=== PATIENT | female | born 1975 | race African-American/Black ===

== ENCOUNTER 2022-06-20 10:06 | Emergency (ER) | payer OTHER, SELFPAY ==
[2022-06-20 10:27] VITALS: BP 140/76; PULSE 89; RESP 16; TEMP 36.5; O2SAT 100
[2022-06-20 11:53] LABS: Basophils Percent Auto 0.8 % (0.2-1.2); Eosinophils Absolute Auto 0.1 K/mm3 (0-0.3); Eosinophils Percent Auto 1.8 % (0-4.4); Hematocrit 42.2 % (37.0-47.0); Hemoglobin 13.6 g/dL (12.0-15.0); Immature Granulocyte Absolute 0.01 K/mm3 (0.00-0.031); Immature Granulocyte Percent A 0.3 % (0-0.5); Lymphocytes Absolute Auto 1.81 K/mm3 (0.9-3.2); Lymphocytes Percent Auto 46.1 % (18.3-44.2); Mean Corpuscular HGB Conc 32.2 g/dl (32-36); Mean Corpuscular Hemoglobin 29.7 pg (26-34); Mean Corpuscular Volume 92.1 fl (80-100); Mean Platelet Volume 9.6 fl (7.4-10.4); Monocytes Absolute Auto 0.5 K/mm3 (0.1-0.6); Monocytes Percent Auto 11.7 % (2.6-8.5); Neutrophils Absolute Auto 1.6 K/mm3 (1.3-6.7); Neutrophils Percent Auto 39.3 % (45.5-73.1); Platelet Count Result 345 k/mm3 (150-375); Red Blood Count 4.58 M/mm3 (4.2-5.4); Red Cell Distribution Width 13.4 % (11.5-14.5); White Blood Count 3.9 K/mm3 (4.5-10.0)
[2022-06-20 12:07] LABS: Alanine Aminotransferase 10 U/L (6-35); Albumin Level 4.4 g/dL (3.5-5.1); Alkaline Phosphatase 63 U/L (38-126); Anion Gap 8 mmol/L (8-16); Aspartate Amino Transferase 23 U/L (14-36); Bilirubin,Total 0.3 mg/dL (0.2-1.3); Blood Urea Nitrogen 8 mg/dL (7-17); Calcium 8.6 mg/dL (8.4-10.2); Carbon Dioxide 26 mmol/L (22-30); Chloride 107 mmol/L (98-107); Estimated CRCL calculation 131 ml/min; Estimated Glomerular Filt Rate > 60; Glucose 97 mg/dL (65-110); Lipase 136 U/L (23-300); Potassium 3.9 mmol/L (3.4-5.0); Sodium 141 mmol/L (137-145)
[2022-06-20] MEDS: SODIUM CHLORIDE 0.9% IV 1,000 ML 999 ML IV CONT ×2 (12:15→13:49)
[2022-06-20 12:29] LABS: Appearance Urine Clear (Clear); Bilirubin Urine 1+ (Negative); Blood Urine 3+ (Negative); Color Urine Dark Yellow (Yellow); Glucose Urine UA Negative (Negative); Ketones Urine 1+ mg/dL (Negative); Leukocyte Esterase Ur Negative LEU/UL (Negative); Nitrate Urine Negative (Negative); Protein Urine 1+ mg/dL (Negative); Specific Grav Ur 1.025 (1.001-1.035); Urobilinogen Urine 0.2 mg/dL (<2.0); pH Urine 5.5 (5.0-9.0)
[2022-06-20 12:29] LABS: Influenza A QL RT-PCR Positive (Negative); Influenza B QL RT-PCR Negative (Negative); SARS-CoV-2 RNA PCR Negative
[2022-06-20 12:33] LABS: Mucus Urine Rare /lpf; RBC Urine >75 /hpf (0-2); Squamous Epithelial Cell Urine Occasional /hpf (Few)
[2022-06-20 12:44] LABS: Add Urine Microscopic? YES
--- NOTE | 2022-06-20 13:29 | ED.NAVMDI ---
HPI - Nausea/Vomiting/Diarrhea General Chief complaint: Nausea/Vomiting/Diarrhea Stated complaint: diarrhea Time Seen by Provider: 06/20/22 11:49 Source: patient Mode of arrival: ambulatory Limitations: no limitations History of Present Illness HPI Narrative: Patient is a 47 y/o female who presents the ED with report of diarrhea. Patient reports she first developed cough and cold symptoms last week. She was around several family members at [facility] who had similar symptoms. On Saturday night, she developed diarrhea which has since persisted. She reports having numerous episodes yesterday and 2 today. She did try Pepto-Bismol and 1 dose of Imodium last night which is provided some relief. She denies any documented fever, nausea, vomiting, abdominal pain, rectal bleeding, urinary symptoms, chest pain, difficulty breathing. She is vaccinated for COVID, but not the flu. Related Data Allergies Allergy/AdvReac Type Severity Reaction Status Date / Time Penicillins Allergy Rash Verified 06/20/22 10:27 Review of Systems Review of Systems: CONSTITUTIONAL: Denies fever, chills, or sweats. ENT: Reports rhinorrhea, congestion, sore throat. CARDIOVASCULAR: Denies chest pain. RESPIRATORY: Reports cough. Denies dyspnea. GASTROINTESTINAL: Reports diarrhea. Denies rectal bleeding, abdominal pain, nausea, vomiting. GENITOURINARY: Denies dysuria or hematuria. All systems reviewed & are unremarkable except as noted in HPI and below PMFSH Past Medical History Medical History (Updated 06/20/22 @ 14:06 by Snehal Peraza PA-C) HLD (hyperlipidemia) HTN (hypertension) Iron deficiency anemia Vitamin D deficiency Surgical History Surgical History (Updated 06/20/22 @ 14:03 by Snehal Peraza PA-C) No pertinent past surgical history Social History Social History (Updated 06/20/22 @ 14:03 by Snehal Peraza PA-C) Smoking status: Never smoker Exam Narrative: GENERAL: Well appearing, morbidly obese, non-toxic, in no acute distress. HEAD: Normocephalic, atraumatic. EENT: PERRLA/EOMI, conjunctiva clear. Mild posterior pharynx erythema, no tonsillar hypertrophy or exudate. Uvula midline. NECK: Supple. No adenopathy, no masses. RESPIRATORY: Airway patent, respirations nonlabored. Clear to auscultation bilaterally, no rales, rhonchi, wheezing. CARDIOVASCULAR: Regular rate and rhythm without murmurs, rubs, or gallops. Peripheral pulses 2+ and equal bilaterally. ABDOMINAL: Soft, no tenderness to palpation throughout abdomen, nondistended, no hepatosplenomegaly. Normoactive BS. MUSCULOSKELETAL: Moves all extremities. Strength/ROM intact without gross deformities. SKIN: Warm, dry, normal color. No rashes. NEURO: A&O X3. Speech clear. Cranial nerves II-XII grossly intact. Steady gait. No ataxic movements. PSYCHIATRIC: Appropriate mood and affect. Normal interaction. Course Vital Signs Vital signs: Vital Signs Temperature 97.7 F 06/20/22 10:27 Pulse Rate 89 06/20/22 10:27 Respiratory Rate 16 06/20/22 10:27 Blood Pressure 140/76 06/20/22 10:27 Pulse Oximetry 100 06/20/22 10:27 Temperature 97.7 F 06/20/22 10:27 Pulse Rate 90 06/20/22 14:55 Respiratory Rate 16 06/20/22 14:55 Blood Pressure 139/75 06/20/22 14:55 Pulse Oximetry 98 06/20/22 14:55 MDM - Nausea/Vomiting/Diarrhea MDM Narrative Medical decision making narrative: Patient presented to ED with several day history of upper respiratory symptoms, 2-day history of diarrhea. Vitals stable upon arrival. Patient well-appearing, nontoxic. Basic labs obtained and unremarkable. Mild leukopenia at 3.9. No previous records to compare to. No significant electrolyte abnormality. Stable kidney function. UA with 1+ ketones, some blood, patient is currently on menstrual cycle. Only 4-6 WBC, doubt UTI. Patient without urinary symptoms. Will send for culture. Patient's influenza A testing positive in the ED. Does match symptom pr
[2022-06-20 14:55] VITALS: BP 139/75; PULSE 90; RESP 16; O2SAT 98
== END 2022-06-20 14:55 | disposition home or self-care (01) ==
PROVIDERS: Emergency Medicine; Emergency Provider Physician Assistant; PCP Physician Assistant
DX: J10.1 Influenza due to other identified influenza virus with other respiratory manifestations (principal); Z20.822 Contact with and (suspected) exposure to COVID-19; R19.7 Diarrhea, unspecified
CPT/HCPCS: 36415; 80053; 81001; 81025; 83690; 85025; 87636; 96360; 96361; 99283; J7030

== ENCOUNTER 2022-08-12 09:40 | Emergency (ER) | payer OTHER, SELFPAY ==
--- NOTE | ~2022-08-12 | CT_ITS ---
EXAMINATION: CT abdomen pelvis w con DATE: 08/12/2022 13:04 INDICATION: Left lower quadrant abdominal pain. TECHNIQUE: Computed tomography (CT) of the abdomen and pelvis was performed with 100 mL Omnipaque 350 intravenous contrast. Automated exposure control and iterative reconstruction technique were employe d. The dose-length product was 1518.56 mGy-cm. COMPARISON: None. FINDINGS: The visualized portions of the lung bases demonstrate minimal atelectasis. No pleural effus ion. The heart size is normal. No pericardial effusion. The liver, gallbladder, spleen, pancreas, adr enal glands, and kidneys are normal. There is a left-sided tubal ligation clip. The right-sided tube ligation clip is dislodged. There are no dilated loops of bowel. The appendix is normal. There are no pathologically enlarged lymph nodes. There is no free intraperitoneal fluid. There are chronic bilat eral L5 pars defects. There is 8 mm anterolisthesis of L5 on S1. There is severe lower lumbar spondyl osis. IMPRESSION: 1. No etiology for the patient's symptoms. Reviewed, dictated and finalized at location A. [employer]
[2022-08-12 09:50] VITALS: BP 118/58; PULSE 83; RESP 15; TEMP 36.6; O2SAT 97
[2022-08-12 11:57] VITALS: BP 104/69; PULSE 77; RESP 18; TEMP 36.9; O2SAT 100
[2022-08-12 12:27] LABS: Basophils Absolute Auto 0.1 K/mm3 (0.0-0.1); Basophils Percent Auto 0.9 % (0.2-1.2); Eosinophils Absolute Auto 0.1 K/mm3 (0-0.3); Eosinophils Percent Auto 1.8 % (0-4.4); Hemoglobin 12.8 g/dL (12.0-15.0); Immature Granulocyte Absolute 0.02 K/mm3 (0.00-0.031); Immature Granulocyte Percent A 0.4 % (0-0.5); Lymphocytes Absolute Auto 2.57 K/mm3 (0.9-3.2); Lymphocytes Percent Auto 45.1 % (18.3-44.2); Mean Corpuscular Hemoglobin 29.5 pg (26-34); Mean Corpuscular Volume 92.2 fl (80-100); Mean Platelet Volume 9.7 fl (7.4-10.4); Monocytes Absolute Auto 0.7 K/mm3 (0.1-0.6); Monocytes Percent Auto 11.9 % (2.6-8.5); Neutrophils Absolute Auto 2.3 K/mm3 (1.3-6.7); Neutrophils Percent Auto 39.9 % (45.5-73.1); Platelet Count Result 350 k/mm3 (150-375); Red Blood Count 4.34 M/mm3 (4.2-5.4); Red Cell Distribution Width 12.6 % (11.5-14.5); White Blood Count 5.7 K/mm3 (4.5-10.0)
--- NOTE | 2022-08-12 12:37 | ED.ABDPAIN ---
HPI - Abdominal Pain General Chief Complaint: Abdominal Pain Stated Complaint: left lower abd pain Time Seen by Provider: 08/12/22 11:41 History of Present Illness HPI narrative: Patient is a 47-year-old female who presents ER with lower abdominal pain. Reports has been ongoing for 1 week. Lower in her abdomen and aching/cramping. She has been drinking hot tea to help it feel better at home. Symptoms did improve yesterday. She day symptoms returned normal or sharp. Points to her left lower quadrant. No radiation into her back or groin. No fevers or chills or sweats. No diarrhea. No history of diverticulitis. Related Data Allergies Allergy/AdvReac Type Severity Reaction Status Date / Time Penicillins Allergy Rash Verified 08/12/22 12:19 Review of Systems Review of Systems: All systems reviewed & are unremarkable except as noted in HPI and below Constitutional: Constitutional: Denies chills, Denies fatigue and Denies fever(s) Gastrointestinal: Gastrointestinal: Reports abdominal pain, Denies diarrhea, Denies nausea and Denies vomiting Genitourinary: Genitourinary: Denies nocturia, Denies dysuria and Denies pelvic pain [facility] Past Medical History Medical History (Updated 08/12/22 @ 13:43 by Solomon Moses MD) HLD (hyperlipidemia) HTN (hypertension) Iron deficiency anemia Vitamin D deficiency Surgical History Surgical History (Updated 06/20/22 @ 14:03 by Snehal Peraza PA-C) No pertinent past surgical history Social History Social History (Updated 06/20/22 @ 14:03 by Snehal Peraza PA-C) Smoking status: Never smoker Exam Narrative: GENERAL: Well-appearing, morbidly obese, and in no acute distress. HEAD: Normocephalic, atraumatic. ENT: Mucous membranes moist. CHEST: Clear to auscultation. No respiratory distress. HEART: Regular rate and rhythm. Normal peripheral pulses. ABDOMEN: Soft, per palpation left lower quadrant with guarding, nondistended. EXTREMITIES: Normal range of motion. No edema. SKIN: Warm, dry, no rash. NEURO: Alert and oriented x3. PSYCH: Normal mood and affect. Course Course Emergency Course: Patient informed of results. May have abdominal wall muscle strain. Recommend conservative management at home with fluids and Tylenol/ibuprofen. Vital Signs Vital signs: Vital Signs Temperature 97.8 F 08/12/22 09:50 Pulse Rate 83 08/12/22 09:50 Respiratory Rate 15 08/12/22 09:50 Blood Pressure 118/58 L 08/12/22 09:50 Pulse Oximetry 97 08/12/22 09:50 Oxygen Delivery Room Air 08/12/22 09:50 Temperature 98.4 F 08/12/22 11:57 Pulse Rate 77 08/12/22 11:57 Respiratory Rate 18 08/12/22 11:57 Blood Pressure 104/69 08/12/22 11:57 Pulse Oximetry 100 08/12/22 11:57 Oxygen Delivery Room Air 08/12/22 11:57 MDM - Abdominal Pain Lab Data 08/12/22 12:17 08/12/22 12:17 Labs: Lab Results 08/12/22 08/12/22 08/12/22 Range/Units 12:12 12:17 12:17 WBC 5.7 (4.5-10.0) K/mm3 RBC 4.34 (4.2-5.4) M/mm3 Hgb 12.8 (12.0-15.0) g/dL Hct 40.0 (37.0-47.0) % MCV 92.2 (80-100) fl MCH 29.5 (26-34) pg MCHC 32.0 (32-36) g/dl RDW 12.6 (11.5-14.5) % Plt Count 350 (150-375) k/mm3 MPV 9.7 (7.4-10.4) fl Immature Gran % (Auto) 0.4 (0-0.5) % Neut % (Auto) 39.9 L (45.5-73.1) % Lymph % (Auto) 45.1 H (18.3-44.2) % Kerr % (Auto) 11.9 H (2.6-8.5) % Eos % (Auto) 1.8 (0-4.4) % Baso % (Auto) 0.9 (0.2-1.2) % Lymph # (Auto) 2.57 (0.9-3.2) K/mm3 Kerr # (Auto) 0.7 H (0.1-0.6) K/mm3 Eos # (Auto) 0.1 (0-0.3) K/mm3 Baso # (Auto) 0.1 (0.0-0.1) K/mm3 Abs Immat Gran (auto) 0.02 (0.00-0.031) K/mm3 Absolute Neuts (auto) 2.3 (1.3-6.7) K/mm3 Absolute Nucleated RBC 0.0 (0.0-0.012) K/mm3 Nucleated RBC % 0.0 (0.0-0.2) % Sodium 140 (137-145) mmol/L Potassium 3.9 (3.4-5.0) mmol/L Chloride 108 H (98-107) mmol/L
[2022-08-12 12:38] LABS: Appearance Urine Clear (Clear); Bilirubin Urine Negative (Negative); Blood Urine Negative (Negative); Color Urine Yellow (Yellow); Glucose Urine UA Negative (Negative); Ketones Urine Negative (Negative); Leukocyte Esterase Ur Negative LEU/UL (Negative); Nitrate Urine Negative (Negative); Protein Urine Negative (Negative); pH Urine 6.5 (5.0-9.0)
[2022-08-12 12:50] LABS: Alanine Aminotransferase 9 U/L (6-35); Albumin Level 3.8 g/dL (3.5-5.1); Alkaline Phosphatase 51 U/L (38-126); Anion Gap 4 mmol/L (8-16); Aspartate Amino Transferase 20 U/L (14-36); Bilirubin,Total 0.5 mg/dL (0.2-1.3); Blood Urea Nitrogen 8 mg/dL (7-17); Calcium 8.2 mg/dL (8.4-10.2); Carbon Dioxide 28 mmol/L (22-30); Chloride 108 mmol/L (98-107); Estimated CRCL calculation 156 ml/min; Estimated Glomerular Filt Rate > 60; Glucose 78 mg/dL (65-110); Lipase 103 U/L (23-300); Potassium 3.9 mmol/L (3.4-5.0); Sodium 140 mmol/L (137-145)
[2022-08-12 12:52] LABS: Add Urine Microscopic? NO
[2022-08-12 13:57] VITALS: BP 119/64; PULSE 79; RESP 18; O2SAT 100
== END 2022-08-12 13:59 | disposition home or self-care (01) ==
PROVIDERS: Emergency Provider Emergency Medicine
DX: S39.011A Strain of muscle, fascia and tendon of abdomen, initial encounter (principal); E78.5 Hyperlipidemia, unspecified; I10 Essential (primary) hypertension; D50.9 Iron deficiency anemia, unspecified; E55.9 Vitamin D deficiency, unspecified; X58.XXXA Exposure to other specified factors, initial encounter
CPT/HCPCS: 36415; 74177; 80053; 81003; 81025; 83690; 85025; 96365; 99284; J0131; Q9967